=== PATIENT | female | born 1980 | race Caucasian/White ===

== ENCOUNTER → 2016-07-02 | Outpatient (CLI) | payer OTHER ==
[~2016-07-02] MED LIST: ABL10 PO; CIPR-255 PO; GDN40 PO; HYDR-5688 PO; JNL12021 PO; PANT40TA PO; RBX750 PO; TOPI100T20 PO
[2016-07-02 17:50] LABS: HEMATOCRIT 39.7 % (37-47); MEAN CELL VOLUME 89.4 fL (80-100); MEAN CORPUSCULAR HEMOGLOBIN 30.6 pg (25-34); MEAN CORPUSCULAR HGB CONC 34.3 g/dl (32-36); MEAN PLATELET VOLUME 9.7 fL (7.4-10.4); PLATELET COUNT 293 K/uL (130-400); RED BLOOD COUNT 4.44 M/uL (4.2-5.4); WHITE BLOOD COUNT 7.79 K/uL (4.8-10.8)
[2016-07-02 18:16] LABS: BASO % 0.3 %; BASO ABS # 0.02 K/uL (0-0.2); COMPLETE YES; EOS % 2.4 %; IG% 0.4 %; LYMPH % 34.3 %; LYMPH ABS # 2.67 K/uL (1.2-3.4); MONO % 5.9 %; NEUT % 56.7 %
[2016-07-05 09:09] LABS: CYCLIC CITRULLINATED PEPT IGG <16 UNITS (<20)
== END | disposition home or self-care (01) ==
LOC: C.LABPVFM 11:15
PROVIDERS: ATTEND Family Medicine
DX: M19.90 Unspecified osteoarthritis, unspecified site (principal); G56.00 Carpal tunnel syndrome, unspecified upper limb

== ENCOUNTER 2016-07-03 02:52 | Emergency (ER) | payer OTHER ==
[~2016-07-03] VITALS: Ht 172.7 cm; Wt 94.5 kg
[~2016-07-03 02:52] MED LIST changes: -ABL10 PO; -CIPR-255 PO; -HYDR-5688 PO; -PANT40TA PO; -TOPI100T20 PO
[2016-07-03 02:58] VITALS: TEMP 36.7; Ht 172.7 cm; Wt 94.5 kg
[2016-07-03] MEDS ORDERED: ONDANSETRON INJ 2 MG/ML 2 ML VIAL IV STA (03:10)
[2016-07-03] MEDS ORDERED: SODIUM CHLORIDE 0.9% 1000ML 1,000 ML IV ONE (03:15)
[2016-07-03] MEDS ORDERED: GI COCKTAIL PO ONE (03:15)
[2016-07-03] MEDS ORDERED: PANTOprazole INJ 40 MG in SYRINGE 0 ML IV ONE (03:15)
[2016-07-03 03:25] LABS: HEMATOCRIT 40.2 % (37-47); MEAN CELL VOLUME 90.7 fL (80-100); MEAN CORPUSCULAR HEMOGLOBIN 31.4 pg (25-34); MEAN CORPUSCULAR HGB CONC 34.6 g/dl (32-36); MEAN PLATELET VOLUME 9.6 fL (7.4-10.4); PLATELET COUNT 295 K/uL (130-400); RED BLOOD COUNT 4.43 M/uL (4.2-5.4); WHITE BLOOD COUNT 10.71 K/uL (4.8-10.8)
[2016-07-03] MEDS ORDERED: ALUMINUM/MAGNESIUM SUSP 30 ML UDC ONE (03:35)
[2016-07-03] MEDS ORDERED: LIDOCAINE HCL 2% VISC SOLN 20 ML UDC ONE (03:36)
[2016-07-03 03:42] LABS: BUN/CREATININE RATIO 11.2 (10-20); CALCIUM 8.8 mg/dl (8.5-10.1); CREATININE 0.99 mg/dl (0.60-1.20); POTASSIUM 3.6 mmol/L (3.5-5.1)
[2016-07-03 03:45] LABS: ALB/GLOB RATIO 0.9 (0.9-2)
[2016-07-03] MEDS ORDERED: OPTIRAY 320 IV PRN (03:45)
[2016-07-03] MEDS ORDERED: TOPI100T20 PO (03:46)
[2016-07-03] MEDS ORDERED: ABL10 PO (03:46)
[2016-07-03 03:49] LABS: BASO % 0.2 %; BASO ABS # 0.02 K/uL (0-0.2); COMPLETE YES; EOS % 2.3 %; IG% 0.3 %; LYMPH % 48.6 %; MONO % 6.3 %; NEUT % 42.3 %
[2016-07-03] MEDS ORDERED: MoRPHine SULFATE 10 MG/ML CARP/VIAL IV STA (04:12)
[2016-07-03] MEDS ORDERED: MoRPHine SULFATE 2 MG/ML CARP ONE (04:21)
[2016-07-03] MEDS ORDERED: MoRPHine SULFATE 4 MG/ML 1 ML CARP\\VIAL ONE (04:21)
[2016-07-03] MEDS ORDERED: MoRPHine SULFATE 4 MG/ML 1 ML CARP\\VIAL IV ONE (05:00)
--- NOTE | 2016-07-03 06:53 | DIAGNOSTIC IMAGING REPORT ---
ABDOMEN 2VIEW W/PA CHEST RTN CLINICAL HISTORY: Epigastric and substernal chest pain COMPARISON STUDY: 01/01/2016 FINDINGS: The erect chest reveals no evidence of free air. There is no evidence of focal pulmonary consolidation.] Erect and supine views of the abdomen reveal no abnormally dilated loops of large or small bowel. There are no transition zone to indicate bowel obstruction. There are multiple pelvic basin calcifications. In the absence of renal colic these likely represent phleboliths IMPRESSION: No evidence of bowel obstruction. No evidence of free air. Electronically signed by: Claudio Talbot M.D. 07/03/2016 6:51 AM Dictated Date/Time: 07/03/2016 6:50 AM
--- NOTE | 2016-07-03 07:15 | DIAGNOSTIC IMAGING REPORT ---
BILIARY ULTRASOUND CLINICAL HISTORY: Epigastric abdominal pain. Abnormal CT scan. COMPARISON STUDY: 01/01/2016, CT scan dated 07/03/2016 FINDINGS: The pancreas appears normal as visualized. No focal hepatic masses are visualized. There is no ductal dilatation. The common bile duct measures 4 mm. There is no right-sided hydronephrosis. There is cholelithiasis. The gallbladder wall measures 3.6 mm. There is no pericholecystic fluid. There is a ringdown artifact within the gallbladder consistent with adenomyomatosis. The gallbladder wall previously measured 4 mm in December 2015. IMPRESSION: 1. Cholelithiasis. The gallbladder wall is the upper limits of normal in thickness. There is no ductal dilatation. Electronically signed by: Claudio Talbot M.D. 07/03/2016 7:14 AM Dictated Date/Time: 07/03/2016 7:11 AM
--- NOTE | 2016-07-03 07:19 | DIAGNOSTIC IMAGING REPORT ---
CT ANGIOGRAM OF THE CHEST CLINICAL HISTORY: Central chest pain with elevated d-dimer COMPARISON STUDY: 01/01/2016 TECHNIQUE: Following the IV administration of 92 mL of Optiray-320, CT angiogram of the thorax was performed from the thoracic inlet to the lung bases utilizing the pulmonary embolus protocol. Images are reviewed in the axial, sagittal, and coronal planes. IV contrast was administered without complication. MIP imaging was performed. CT DOSE: 577.01 mGy.cm FINDINGS: No pathologically enlarged axillary mediastinal or hilar lymph nodes were visualized. Prominent anterior mediastinal soft tissue, likely represents prominent thymus. This remains unchanged from the prior study. There was no evidence of thoracic aortic dilatation. There were no pulmonary artery filling defects to indicate acute pulmonary embolism. No pleural effusions are visualized. There was no evidence of focal pulmonary consolidation. IMPRESSION: 1. No CT evidence of acute pulmonary embolism 2. No evidence of focal pulmonary consolidation 3. Stable prominent anterior mediastinal soft tissue, likely representing prominent thymus Electronically signed by: Claudio Talbot M.D. 07/03/2016 7:18 AM Dictated Date/Time: 07/03/2016 7:14 AM
[2016-07-03] MEDS ORDERED: PANT40TA PO (07:24)
[2016-07-03] MEDS ORDERED: HYDR-5688 PO (07:24)
--- NOTE | 2016-07-03 07:27 | EMERGENCY ROOM VISIT NOTE ---
History First contact with patient: 03:02 Chief Complaint: CHEST PAIN Stated Complaint: STERNUM PAIN,NAUSEA Nursing Triage Summary: pt co chest/epigastric pain that began 45minutes ago. reports mid back pain woke her from sleep and advanced to chest pain with associated nausea. pt denies sob at this time. denies pmh. states she has had problems like this in the past " they said it was a blood clot or gall stones." pt alert and oriented x4. breathing regularly and independently. History of Present Illness The patient is a 36 year old female who presents to the Emergency Room with complaints of epigastric and substernal chest pain that began about 45 minutes prior to arrival. The patient states that her pain woke her up from sleep and does not radiate. She is nauseated. The patient has not vomited, but does report a history of gallstones. She has had similar symptoms like this previously without known diagnosis. The patient rates the pain an 8/10. She has not had fever or chills. She felt well yesterday and does not recall trying different food or having known exposure to disease. She does not have lower abdominal pain. No recent travel history. Review of Systems More than 10 systems were reviewed and otherwise negative with the exception of history of present illness. Past Medical/Surgical History Medical Problems: (1) Anxiety State Nos (2) Back pain (3) Back pain (4) Borderline Personality Disorder (5) Depressive Disorder Nec (6) Headache (7) Kidney stones (8) Posttraumatic Stress Disorder (9) Suicidal ideation (10) Urinary tract infection (11) UTI (urinary tract infection) Surgical Problems: (1) History of tubal ligation Family History Hypertension Kidney stones Social History Smoking Status: Never Smoker Alcohol Use: none Drug Use: none Marital Status: in relationship Housing Status: lives with family Occupation Status: employed Current/Historical Medications Scheduled Aripiprazole (Abilify), 10 MG PO DAILY Ethinyl Estradiol/Norethindr (June04/19), 1 TAB PO DAILY Topiramate (Topamax), 100 MG PO HS Scheduled PRN Methocarbamol (Methocarbamol), 375-750 MG PO Q8 PRN for Headache Allergies Coded Allergies: Latex (Verified Allergy, Intermediate, SWELLING WITH INTERNAL EXAMS AND CONDOMS, 07/03/16) Physical Exam Vital Signs Date Time Temp Pulse Resp B/P Pulse Ox O2 Delivery O2 Flow Rate FiO2 4/5/17 05:07 83 17 134/85 94 Room Air 07/03/16 04:12 92 16 149/95 100 Room Air 07/03/16 03:07 86 07/03/16 02:58 36.7 84 20 128/90 98 Room Air Pain Rating (0-10): 6.0 Physical Exam VITALS: Vitals are noted on the nurse's note and reviewed by myself. Vital signs stable. GENERAL: Well-developed, well-nourished, white female, who is in no acute distress and resting comfortably. Patient is cooperative with the examination. HEAD: Normocephalic atraumatic. HEART: Regular rate and rhythm without murmurs gallops or rubs. LUNGS: Clear to auscultation bilaterally without wheezes, rales or rhonchi. No retractions or accessory muscle use. ABDOMEN: Positive normal bowel sounds x 4. Soft with epigastric tenderness on palpation. No rebound or guarding. MUSCULOSKELETAL: No muscle atrophy, erythema, or edema noted. Full range of motion without joint tenderness in all extremities. Medical Decision & Procedures ER Provider Diagnostic Interpretation: Preliminary Findings Only See Final Report For Complete Findings CTA CHEST: Comparison 01/01/16 No evidence for PE or aortic dissection. Suspected hypoventilatory changes. No consolidation. No effusions. No aortic dissection or other acute intrathoracic finding. Similar-appearing soft tissues density in mediastinum. May represents small nodes and/or thymus, as discussed on prior. Equivocal mural thickening of the partially imaged gallbladder. Correlate for any right upper quadrant symptoms. BILIARY ULTRASOUND CLINICAL HISTORY: Epigastric abdominal pain. Abnormal CT scan. COMPARISON STUDY: 01/01/2016, CT scan dated 07/03/2016 FINDINGS: The pancreas appears normal as visualized. No focal hepatic masses are visualized. There is no ductal dilatation. The common bile duct measures 4 mm. There is no right-sided hydronephrosis. There is cholelithiasis. The gallbladder wall measures 3.6 mm. There is no pericholecystic fluid. There is a ringdown artifact within the gallbladder consistent with adenomyomatosis. The gallbladder wall previously measured 4 mm in December 2015. IMPRESSION: 1. Cholelithiasis. The gallbladder wall is the upper limits of normal in thickness. There is no ductal dilatation. Laboratory Results 07/03/16 03:11 Red Blood Count 4.43, Mean Corpuscular Volume 90.7, Mean Corpuscular Hemoglobin 31.4, Mean Corpuscular Hemoglobin Concent 34.6, Mean Platelet Volume 9.6, Neutrophils (%) (Auto) 42.3, Lymphocytes (%) (Auto) 48.6, Monocytes (%) (Auto) 6.3, Eosinophils (%) (Auto) 2.3, Basophils (%) (Auto) 0.2, Neutrophils # (Auto) 4.53, Lymphocytes # (Auto) 5.20, Monocytes # (Auto) 0.68, Eosinophils # (Auto) 0.25, Basophils # (Auto) 0.02 07/03/16 03:11 Test 07/03/16 03:11 07/03/16 03:15 White Blood Count 10.71 K/uL (4.8-10.8) Red Blood Count 4.43 M/uL (4.2-5.4) Hemoglobin 13.9 g/dL (12.0-16.0) Hematocrit 40.2 % (37-47) Mean Corpuscular Volume 90.7 fL (80-100) Mean Corpuscular Hemoglobin 31.4 pg (25-34) Mean Corpuscular Hemoglobin Concent 34.6 g/dl (32-36) Platelet Count 295 K/uL (130-400) Mean Platelet Volume 9.6 fL (7.4-10.4) Neutrophils (%) (Auto) 42.3 % Lymphocytes (%) (Auto) 48.6 % Monocytes (%) (Auto) 6.3 % Eosinophils (%) (Auto) 2.3 % Basophils (%) (Auto) 0.2 % Neutrophils # (Auto) 4.53 K/uL (1.4-6.5) Lymphocytes # (Auto) 5.20 K/uL (1.2-3.4) Monocytes # (Auto) 0.68 K/uL (0.11-0.59) Eosinophils # (Auto) 0.25 K/uL (0-0.5) Basophils # (Auto) 0.02 K/uL (0-0.2) RDW Standard Deviation 45.9 fL (36.4-46.3) RDW Coefficient of Variation 13.8 % (11.5-14.5) Immature Granulocyte % (Auto) 0.3 % Immature Granulocyte # (Auto) 0.03 K/uL (0.00-0.02) Red Blood Cell Morphology Unremarkable Anion Gap 7.0 mmol/L (3-11) Est Creatinine Clear Calc Drug Dose 95.3 ml/min Estimated GFR () 85.6 Estimated GFR (Non- 73.8 BUN/Creatinine Ratio 11.2 (10-20) Calcium Level 8.8 mg/dl (8.5-10.1) Total Bilirubin 0.2 mg/dl (0.2-1) Aspartate Amino Transf (AST/SGOT) 8 U/L (15-37) Alanine Aminotransferase (ALT/SGPT) 22 U/L (12-78) Alkaline Phosphatase 65 U/L (45-117) Total Protein 7.4 gm/dl (6.4-8.2) Albumin 3.5 gm/dl (3.4-5.0) Globulin 3.9 gm/dl (2.5-4.0) Albumin/Globulin Ratio 0.9 (0.9-2) Lipase 164 U/L (73-393) Bedside D-Dimer > 450 ng/mlFEU (0-450) Bedside Troponin I 0.000 ng/ml (0-0.045) Medications Administered Medications (Trade) Dose Ordered Sig/Dg Route Start Time Stop Time Status Last Admin Dose Admin Sodium Chloride (Nss 1000ml) 1,000 ml @ 999 mls/hr Q1H1M ONCE IV 07/03/16 03:15 07/03/16 04:15 DC 07/03/16 03:39 999 MLS/HR Ondansetron HCl 4 mg 4 mg NOW STAT IV 07/03/16 03:10 07/03/16 03:13 DC 07/03/16 03:35 4 MG Pantoprazole Sodium/Syringe (Protonix Inj/ Syringe) 10 ml @ 5 mls/min NOW ONCE IV 07/03/16 03:15 07/03/16 03:16 DC 07/03/16 05:10 5 MLS/MIN Al Hydroxide/Mg Hydroxide (Maalox Susp) 30 ml STK-MED ONCE .ROUTE 07/03/16 03:35 07/03/16 03:36 DC 07/03/16 03:35 30 ML Lidocaine HCl (Viscous Lidocaine 2% Soln) 20 ml STK-MED ONCE .ROUTE 07/03/16 03:36 07/03/16 03:37 DC 07/03/16 03:35 20 ML Morphine Sulfate (MoRPHine SULFATE INJ) 4 mg STK-MED ONCE .ROUTE 07/03/16 04:21 07/03/16 04:22 DC 07/03/16 04:18 4 MG Morphine Sulfate (MoRPHine SULFATE INJ) 2 mg STK-MED ONCE .ROUTE 07/03/16 04:21 07/03/16 04:22 DC 07/03/16 04:18 2 MG Morphine Sulfate (MoRPHine SULFATE INJ) 4 mg NOW ONCE IV 07/03/16 05:00 07/03/16 05:01 DC 07/03/16 05:08 4 MG ED Course Physical exam and history were performed. Nursing notes and EMR were reviewed. Patient appears to have epigastric and substernal chest pain for the past 45 minutes. The patient does not appear toxic on examination. IV access was established and labs were obtained. EKG was normal sinus rhythm without ST elevation. The patient was hydrated and medicated as above. The patient blood work is as above and was reviewed. She does not have a significantly elevated white blood cell count or gross anemia, bandemia, or significant electrolyte imbalance. Lipase and transaminases are nondiagnostic. Troponin 1 is negative, however her d-dimer is positive. Because of the CT scan was performed. CT scan does not show evidence of acute pulmonary embolism or other intrathoracic processes. There is some concern for gallbladder thickening on CT scan of the chest, however the gallbladder was not completely visualized. Because of this I did elect to perform an ultrasound of the right upper quadrant which does show some biliary disease but no acute cholecystitis. Overall the patient appears stable for discharge home. I suspect that her symptoms may be related to GERD or possibly biliary colic. She will be given a short course of Vicodin and Protonix for her symptoms. I will give her the information to follow with a general surgeon for further evaluation of her gallbladder. The patient is otherwise to follow with PCP this week for further management. She is invited back to the ER with any new, worsening, or concerning symptoms. The chart was completed utilizing [employer] Voice Recognition Software. Grammatical errors, random word insertions, pronoun errors, and incomplete sentences are an occasional consequence of this system due to software limitations, ambient noise, and hardware issues. Any formal questions or concerns about the content, text, or information contained within the body of this dictation should be directly addressed to the provider for clarification. . Medical Decision Differential diagnosis: Etiologies such as appendicitis, diverticulitis, PUD, biliary pathology, UTI, pancreatitis, obstruction, mesenteric ischemia, aortic pathology, infections, inflammatory bowel disease, renal colic, as well as others were entertained. Impression Primary Impression: Substernal precordial chest pain Departure Information Referrals Aurea Gonzalez M.D. (PCP) Patient Instructions My [facility]
[2016-07-03 08:00] VITALS: BP 127/88; PULSE 87; O2SAT 96
[2016-07-14] MEDS ORDERED: CIPR-255 PO (05:31)
[2016-07-14] MEDS ORDERED: HYDR-5688 PO (05:31)
== END 2016-07-03 08:02 | disposition home or self-care (01) ==
LOC: C.EDB 02:54
DX: R07.2 Precordial pain (principal); R11.0 Nausea; R10.13 Epigastric pain

== ENCOUNTER 2016-07-12 15:24 | Inpatient (IN) | payer OTHER ==
[~2016-07-12] VITALS: Ht 172.7 cm; Wt 97.1 kg
[~2016-07-12 15:24] MED LIST changes: +ABL10 PO; -GDN40 PO; +HYDR-5688 PO; +PANT40TA PO; +TOPI100T20 PO
[2016-07-12] MEDS ORDERED: ONDANSETRON INJ 2 MG/ML 2 ML VIAL IV STA (17:23)
[2016-07-12] MEDS ORDERED: MoRPHine SULFATE 4 MG/ML 1 ML CARP\\VIAL IV STA (17:28)
--- NOTE | 2016-07-12 17:31 | EMERGENCY ROOM VISIT NOTE ---
History First contact with patient: 17:03 Chief Complaint: ABDOMINAL PAIN Stated Complaint: GALLSTONES Nursing Triage Summary: Patient states he was here with gal stones last week and today pain increased with n/v. History of Present Illness The patient is a 36 year old female who presents to the Emergency Room with complaints of 3 hr hx of progressive epigastric pain. Pain is constant, 8/10 intensity , radiating to back, Rt flank. Patient also reports subjective fever , 1 episode vomiting. She has taken no medication. denies constipation, hematochezia, melena, diarrhea, cp, sob, Patient was previously in ED for Chest pain on 07/03. She had a negative cardiac workup for ACS, negative PE workup with CT . CT showed Gall bladder thickness. RUQ U/S showed cholelithiasis without acute cholecystis Past Medical/Surgical History Medical Problems: (1) Anxiety State Nos (2) Back pain (3) Back pain (4) Borderline Personality Disorder (5) Depressive Disorder Nec (6) Headache (7) Kidney stones (8) Posttraumatic Stress Disorder (9) Suicidal ideation (10) Urinary tract infection (11) UTI (urinary tract infection) Surgical Problems: (1) History of tubal ligation Family History Hypertension Kidney stones Social History Smoking Status: Current Every Day Smoker Alcohol Use: none Drug Use: none Marital Status: in relationship Housing Status: lives with family Occupation Status: employed Current/Historical Medications Scheduled Aripiprazole (Abilify), 10 MG PO DAILY Ciprofloxacin Hcl (Cipro), 1 TAB PO BID Ethinyl Estradiol/Norethindr (Junel 04/19), 1 TAB PO DAILY Pantoprazole (Protonix), 40 MG PO DAILY Topiramate (Topamax), 100 MG PO HS Scheduled PRN Hydrocodone/Acetaminophen 5MG/325MG ([place] 5MG/325MG), 1-2 TABLET PO q 6 hrs PRN for Pain Methocarbamol (Methocarbamol), 375-750 MG PO Q8 PRN for Headache Allergies Coded Allergies: Latex (Verified Allergy, Intermediate, SWELLING WITH INTERNAL EXAMS AND CONDOMS, 07/12/16) Physical Exam Vital Signs Date Time Temp Pulse Resp B/P Pulse Ox O2 Delivery O2 Flow Rate FiO2 07/12/16 18:03 86 18 138/79 97 Room Air 07/12/16 15:37 36.7 96 20 133/84 98 Room Air Physical Exam GENERAL: alert, anxious appearing, no distress, non-toxic EYE EXAM: normal conjunctiva, PERRL and EOM's grossly intact OROPHARYNX: no exudate, no erythema, lips, buccal mucosa, and tongue normal and mucous membranes are moist NECK: supple, no nuchal rigidity, no adenopathy, non-tender LUNGS: Clear to auscultation. Normal chest wall mechanics HEART: no murmurs, S1 normal and S2 normal ABDOMEN: Epigastric, RUQ tenderness, Aguilera sx negative, normo-active bowel sounds, no masses, no rebound or guarding. SKIN: no rashes and no bruising UPPER EXTREMITIES: upper extremities are grossly normal. LOWER EXTREMITIES: No pitting edema. NEURO EXAM: Normal sensorium, cranial nerves II-XII grossly intact, normal speech, no gross weakness of arms, no gross weakness of legs. Medical Decision & Procedures Laboratory Results 07/12/16 17:48 Red Blood Count 4.50, Mean Corpuscular Volume 90.2, Mean Corpuscular Hemoglobin 31.3, Mean Corpuscular Hemoglobin Concent 34.7, Mean Platelet Volume 9.7, Neutrophils (%) (Auto) 83.5, Lymphocytes (%) (Auto) 11.8, Monocytes (%) (Auto) 4.2, Eosinophils (%) (Auto) 0.1, Basophils (%) (Auto) 0.2, Neutrophils # (Auto) 10.89, Lymphocytes # (Auto) 1.54, Monocytes # (Auto) 0.55, Eosinophils # (Auto) 0.01, Basophils # (Auto) 0.02 07/12/16 17:48 Test 07/12/16 17:25 07/12/16 17:48 Urine Color DK YELLOW Urine Appearance CLEAR (CLEAR) Urine pH 6.5 (4.5-7.5) Urine Specific [place] 1.024 (1.000-1.030) Urine Protein NEG (NEG) Urine Glucose (UA) NEG (NEG) Urine Ketones NEG (NEG) Urine Occult Blood NEG (NEG) Urine Nitrite NEG (NEG) Urine Bilirubin NEG (NEG) Urine Urobilinogen NEG (NEG) Urine Leukocyte Esterase NEG (NEG) Urine Test NEG (NEG) White Blood Count 13.04 K/uL (4.8-10.8) Red Blood Count 4.50 M/uL (4.2-5.4) Hemoglobin 14.1 g/dL (12.0-16.0) Hematocrit 40.6 % (37-47) Mean Corpuscular Volume 90.2 fL (80-100) Mean Corpuscular Hemoglobin 31.3 pg (25-34) Mean Corpuscular Hemoglobin Concent 34.7 g/dl (32-36) Platelet Count 277 K/uL (130-400) Mean Platelet Volume 9.7 fL (7.4-10.4) Neutrophils (%) (Auto) 83.5 % Lymphocytes (%) (Auto) 11.8 % Monocytes (%) (Auto) 4.2 % Eosinophils (%) (Auto) 0.1 % Basophils (%) (Auto) 0.2 % Neutrophils # (Auto) 10.89 K/uL (1.4-6.5) Lymphocytes # (Auto) 1.54 K/uL (1.2-3.4) Monocytes # (Auto) 0.55 K/uL (0.11-0.59) Eosinophils # (Auto) 0.01 K/uL (0-0.5) Basophils # (Auto) 0.02 K/uL (0-0.2) RDW Standard Deviation 44.0 fL (36.4-46.3) RDW Coefficient of Variation 13.3 % (11.5-14.5) Immature Granulocyte % (Auto) 0.2 % Immature Granulocyte # (Auto) 0.03 K/uL (0.00-0.02) Anion Gap 7.0 mmol/L (3-11) Est Creatinine Clear Calc Drug Dose 110.0 ml/min Estimated GFR () 100.0 Estimated GFR (Non- 86.3 BUN/Creatinine Ratio 12.8 (10-20) Calcium Level 9.0 mg/dl (8.5-10.1) Total Bilirubin 0.7 mg/dl (0.2-1) Direct Bilirubin 0.4 mg/dl (0-0.2) Aspartate Amino Transf (AST/SGOT) 137 U/L (15-37) Alanine Aminotransferase (ALT/SGPT) 116 U/L (12-78) Alkaline Phosphatase 119 U/L (45-117) Total Protein 7.9 gm/dl (6.4-8.2) Albumin 3.7 gm/dl (3.4-5.0) Lipase 230 U/L (73-393) Medications Administered Medications (Trade) Dose Ordered Sig/Dg Route Start Time Stop Time Status Last Admin Dose Admin Ondansetron HCl (Zofran Inj) 4 mg NOW STAT IV 07/12/16 17:23 07/12/16 17:26 DC 07/12/16 17:55 4 MG Morphine Sulfate (MoRPHine SULFATE INJ) 4 mg NOW STAT IV 07/12/16 17:28 07/12/16 17:29 DC 07/12/16 17:55 4 MG Medical Decision 36 yo F previously diagnosed with cholelithiasis without acute cholecystitis in ED on 07/03 p/w acute epigastric pain,tenderness, RUQ tenderness, afebrile, VSS Differential diagnoses includes but is not limited to gastritis, peptic ulcer disease, GERD, gallbladder disease, pancreatitis, small bowel obstruction, acute coronary syndrome, pericarditis, ischemic bowel, irritable bowel disease, irritable bowel syndrome, appendicitis, diverticulitis, malignancy, hernia, urinary tract infection, torsion, /ectopic , perforation, trauma, infectious. CBC White ct: 13.04 otherwise unremarkable BMP unremarkable LFT -AST: 137 ( previously 8 on 07/03) -ALT: 116 (previously 22 on 07/03) -Alk Phos: 119 (previously 65 on 07/03) UA negative Lipase negative UPT negative RUQ u/s: Cholelithiasis with a mildly distended and thick-walled gallbladder.A sonographic Aguilera's sign is reportedly absent and findings are equivocal for acute cholecystitis which is not excluded. -Given Morphine 4 mg -Given Zofran IV 4 mg Patient's hx of cholelithiasis, RUQ tenderness,, leukocytosis , elevated LFT's and evidence on U/S are consistent with Acute Cholecystitis. Discussed case with [facility] Surgeon, Dr. Chow who agreed to evaluate her. Per Dr. Chow, patient will be scheduled for Cholecystectomy on the morning of 07/13/2016 Impression Primary Impression: Acute cholecystitis due to biliary calculus Departure Information Dispostion Admitted as an inpatient Condition GOOD Prescriptions Ciprofloxacin Hcl (CIPRO) 500 Mg Tab 1 TAB PO BID for 5 Days, #10 TAB Prov: Arash Chow M.D. 07/14/16 Hydrocodone/Acetaminophen 5MG/325MG ([place] 5MG/325MG) Tab 1-2 TABLET PO q 6 hrs Y for Pain, #40 TAB PRN PAIN Prov: Arash Chow M.D. 07/14/16 Referrals Aurea Gonzalez M.D. (PCP) Patient Instructions My [facility] Resident Tracking Resident Involvement: Resident Care Provided Care Provided: Adult ED
[2016-07-12 17:40] LABS: URINE APPEARANCE CLEAR (CLEAR); URINE BILIRUBIN NEG (NEG); URINE COLOR DK YELLOW; URINE NITRITE NEG (NEG); URINE PH 6.5 (4.5-7.5); URINE SPECIFIC GRAVITY 1.024 (1.000-1.030); UROBILINOGEN NEG (NEG)
[2016-07-12 17:49] LABS: MANUAL MICROSCOPIC REQUIRED? NO; REVIEW REQ? NO
[2016-07-12 18:00] LABS: BASO % 0.2 %; BASO ABS # 0.02 K/uL (0-0.2); COMPLETE YES; EOS % 0.1 %; HEMATOCRIT 40.6 % (37-47); IG% 0.2 %; LYMPH % 11.8 %; LYMPH ABS # 1.54 K/uL (1.2-3.4); MEAN CELL VOLUME 90.2 fL (80-100); MEAN CORPUSCULAR HEMOGLOBIN 31.3 pg (25-34); MEAN CORPUSCULAR HGB CONC 34.7 g/dl (32-36); MEAN PLATELET VOLUME 9.7 fL (7.4-10.4); MONO % 4.2 %; NEUT % 83.5 %; PLATELET COUNT 277 K/uL (130-400); WHITE BLOOD COUNT 13.04 K/uL (4.8-10.8)
[2016-07-12 18:15] LABS: BUN/CREATININE RATIO 12.8 (10-20); CREATININE 0.87 mg/dl (0.60-1.20); POTASSIUM 3.7 mmol/L (3.5-5.1)
--- NOTE | 2016-07-12 19:00 | DIAGNOSTIC IMAGING REPORT ---
ULTRASOUND RIGHT UPPER QUADRANT ABDOMEN CLINICAL HISTORY: Right upper quadrant abdominal pain. COMPARISON STUDY: Ultrasound of the abdomen dated 07/03/2016. TECHNIQUE: Real-time, grayscale, and color flow sonography of the right upper quadrant of the abdomen was performed. Images are reviewed in the transverse and longitudinal planes. FINDINGS: Liver: The liver is normal in size and echotexture. There is no intrahepatic biliary ductal dilatation. The main portal vein is patent. Gallbladder: Calcified gallstones are again noted. The gallbladder is mildly distended. The gallbladder wall is mildly thickened measuring up to 4 mm. No pericholecystic fluid is identified. A sonographic Aguilera's sign is reportedly absent. The common bile duct measures up to 0.5 cm in diameter. Pancreas: Visualized portions of the pancreatic head and body are normal in appearance. Right kidney: Survey images of the right kidney demonstrate normal size and echotexture. There is no hydronephrosis. Ascites: None. IMPRESSION: Cholelithiasis with a mildly distended and thick-walled gallbladder. A sonographic Aguilera's sign is reportedly absent and findings are equivocal for acute cholecystitis which is not excluded. The appearance has not significantly changed from study performed 9 days previously. If there is strong clinical concern for acute cholecystitis then a nuclear hepatobiliary scan should be considered. Electronically signed by: Roberto Roca M.D. 07/12/2016 6:57 PM Dictated Date/Time: 07/12/2016 6:54 PM
[2016-07-12] MEDS ORDERED: ONDANSETRON INJ 2 MG/ML 2 ML VIAL IV PRN (19:45)
[2016-07-12] MEDS ORDERED: HYDROCODONE/ACETAMOPHEN 5/325MG TAB PO PRN (19:45)
[2016-07-12] MEDS ORDERED: LORAZEPAM INJ 0.5 MG in SYRINGE 0.25 ML IV PRN (19:45)
[2016-07-12] MEDS ORDERED: PROMETHAZINE HCL INJ 25 MG in SODIUM CHLORIDE 0.9% 50ML 50 ML IV PRN (19:45)
--- NOTE | 2016-07-12 19:54 | History and Physical ---
History & Physical Date & Time of Service: Jul 12, 2016 at 19:48 Chief Complaint: Gallstones Primary Care Physician: Aurea Gonzalez M.D. History of Present Illness pt with epigastric and RUQ pain- u/s shows thickened gb- Lg stones- worse than when in ER 4/5.- Recently in my office- wanted to delay surgery. Past Medical/Surgical History Medical Problems: (1) Anxiety State Nos Status: Chronic (2) Back pain Status: Resolved (3) Back pain Status: Resolved (4) Borderline Personality Disorder Status: Chronic (5) Depressive Disorder Nec Status: Chronic (6) Headache Status: Resolved (7) Kidney stones Status: Chronic (8) Posttraumatic Stress Disorder Status: Chronic (9) Suicidal ideation Status: Resolved (10) Urinary tract infection Status: Resolved (11) UTI (urinary tract infection) Status: Resolved Surgical Problems: (1) History of tubal ligation Status: Resolved Family History Hypertension Kidney stones Social History Smoking Status: Current Every Day Smoker Drug Use: none Marital Status: in relationship Housing status: lives with family Occupational Status: employed Immunizations History of Influenza Vaccine: No History of Tetanus Vaccine?: Yes Tetanus Immunization Date: Mar 08, 2009 History of Pneumococcal: No History of Hepatitis B Vaccine: Yes Hepatitis Immunization Date: Mar 08, 2000 Multi-Drug Resistant Organisms History of MDRO: No Allergies Coded Allergies: Latex (Verified Allergy, Intermediate, SWELLING WITH INTERNAL EXAMS AND CONDOMS, 07/12/16) Home Medications Scheduled Aripiprazole (Abilify), 10 MG PO DAILY Ethinyl Estradiol/Norethindr (June04/19), 1 TAB PO DAILY Pantoprazole (Protonix), 40 MG PO DAILY Topiramate (Topamax), 100 MG PO HS Scheduled PRN Methocarbamol (Methocarbamol), 375-750 MG PO Q8 PRN for Headache Review of Systems Constitutional: No chills, No fever Eyes: No eye pain Respiratory: No cough, No shortness of breath, No sputum Cardiovascular: No chest pain Abdomen: + nausea, + pain, No vomiting Musculoskeletal: No joint pain Genitourinary - Female: No dysuria Neurologic: No weakness Psychiatric: + depression symptoms Endocrine: No fatigue Integumentary: No rash Physical Exam Vital Signs Date Time Temp Pulse Resp B/P Pulse Ox O2 Delivery O2 Flow Rate FiO2 07/12/16 18:03 86 18 138/79 97 Room Air 07/12/16 15:37 36.7 96 20 133/84 98 Room Air General Appearance: WD/WN, no apparent distress Eyes: sclerae normal Neck: supple Respiratory/Chest: normal breath sounds, no respiratory distress Cardiovascular: regular rate, rhythm Abdomen/GI: soft, + tenderness (mild RUQ tenderness) Extremities/Musculoskelatal: no pedal edema Neurologic/Psych: alert, normal mood/affect, oriented x 3 Skin: no rash Diagnostics Laboratory Results Results Past 24 Hours Test 07/12/16 17:25 07/12/16 17:48 Range/Units Urine Color DK YELLOW Urine Appearance CLEAR CLEAR Urine pH 6.5 4.5-7.5 Urine Specific [place] 1.024 1.000-1.030 Urine Protein NEG NEG Urine Glucose (UA) NEG NEG Urine Ketones NEG NEG Urine Occult Blood NEG NEG Urine Nitrite NEG NEG Urine Bilirubin NEG NEG Urine Urobilinogen NEG NEG Urine Leukocyte Esterase NEG NEG Urine Test NEG NEG White Blood Count 13.04 4.8-10.8 K/uL Red Blood Count 4.50 4.2-5.4 M/uL Hemoglobin 14.1 12.0-16.0 g/dL Hematocrit 40.6 37-47 % Mean Corpuscular Volume 90.2 80-100 fL Mean Corpuscular Hemoglobin 31.3 25-34 pg Mean Corpuscular Hemoglobin Concent 34.7 32-36 g/dl Platelet Count 277 130-400 K/uL Mean Platelet Volume 9.7 7.4-10.4 fL Neutrophils (%) (Auto) 83.5 % Lymphocytes (%) (Auto) 11.8 % Monocytes (%) (Auto) 4.2 % Eosinophils (%) (Auto) 0.1 % Basophils (%) (Auto) 0.2 % Neutrophils # (Auto) 10.89 1.4-6.5 K/uL Lymphocytes # (Auto) 1.54 1.2-3.4 K/uL Monocytes # (Auto) 0.55 0.11-0.59 K/uL Eosinophils # (Auto) 0.01 0-0.5 K/uL Basophils # (Auto) 0.02 0-0.2 K/uL RDW Standard Deviation 44.0 36.4-46.3 fL RDW Coefficient of Variation 13.3 11.5-14.5 % Immature Granulocyte % (Auto) 0.2 % Immature Granulocyte # (Auto) 0.03 0.00-0.02 K/uL Sodium Level 145 136-145 mmol/L Potassium Level 3.7 3.5-5.1 mmol/L Chloride Level 113 98-107 mmol/L Carbon Dioxide Level 25 21-32 mmol/L Anion Gap 7.0 3-11 mmol/L Blood Urea Nitrogen 11 7-18 mg/dl Creatinine 0.87 0.60-1.20 mg/dl Est Creatinine Clear Calc Drug Dose 110.0 ml/min Estimated GFR () 100.0 Estimated GFR (Non- 86.3 BUN/Creatinine Ratio 12.8 10-20 Random Glucose 124 70-99 mg/dl Calcium Level 9.0 8.5-10.1 mg/dl Total Bilirubin 0.7 0.2-1 mg/dl Direct Bilirubin 0.4 0-0.2 mg/dl Aspartate Amino Transf (AST/SGOT) 137 15-37 U/L Alanine Aminotransferase (ALT/SGPT) 116 12-78 U/L Alkaline Phosphatase 119 45-117 U/L Total Protein 7.9 6.4-8.2 gm/dl Albumin 3.7 3.4-5.0 gm/dl Lipase 230 73-393 U/L Impression Assessment and Plan adm with acute cholecystitis- for OR in am- lap alexi IV fluids, atbx, pain meds, antiemetics. ask med team to follow VTE Prophylaxis VTE Risk Assessment Done? Y/N: Yes Risk Level: Moderate
--- NOTE | 2016-07-12 19:59 | EMERGENCY ROOM VISIT NOTE ---
History Report prepared by Shayy: Duarte Elliott Under the Supervision of: Dr. Krystian Colon M.D. First contact with patient: 17:03 Chief Complaint: ABDOMINAL PAIN Stated Complaint: GALLSTONES Nursing Triage Summary: Patient states he was here with gal stones last week and today pain increased with n/v. History of Present Illness The patient is a 36 year old female who presents to the Emergency Room with complaints of persistent epigastric pain that started 3 hours ago. She describes the pain as stabbing and radiating into her back and right flank. The patient rates the pain as an 8 out of 10 in severity. She had one episode of vomiting with no blood. The patient says that she felt warm and sweaty earlier, but the patient does not currently have a fever here. She has not taken any medications for this current pain. She was here on the 03 of July, and was found to have gallstones and increased gallbladder thickness. The patient says that she did not eat recently, and has not been eating too many fatty foods. She denies any urinary symptoms. Source of History: patient Onset: 3 hours ago Position: abdomen (epigastric) Symptom Intensity: 8 out of 10 in severity Quality: stabbing Timing: other (persistent) Associated Symptoms: + back pain, + vomiting (no blood), No fevers, No urinary symptoms Note: Associated symptom: Pain radiating into right flank. [place] warm and sweaty earlier. Review of Systems See HPI for pertinent positives & negatives. A total of 10 systems reviewed and were otherwise negative. Past Medical & Surgical Medical Problems: (1) Anxiety State Nos (2) Back pain (3) Back pain (4) Borderline Personality Disorder (5) Depressive Disorder Nec (6) Headache (7) Kidney stones (8) Posttraumatic Stress Disorder (9) Suicidal ideation (10) Urinary tract infection (11) UTI (urinary tract infection) Surgical Problems: (1) History of tubal ligation Family History Hypertension Kidney stones Social History Smoking Status: Current Every Day Smoker Alcohol Use: none Drug Use: none Marital Status: in relationship Housing Status: lives with family Occupation Status: employed Current/Historical Medications Scheduled Aripiprazole (Abilify), 10 MG PO DAILY Ethinyl Estradiol/Norethindr (June04/19), 1 TAB PO DAILY Pantoprazole (Protonix), 40 MG PO DAILY Topiramate (Topamax), 100 MG PO HS Scheduled PRN Methocarbamol (Methocarbamol), 375-750 MG PO Q8 PRN for Headache Allergies Coded Allergies: Latex (Verified Allergy, Intermediate, SWELLING WITH INTERNAL EXAMS AND CONDOMS, 07/12/16) Physical Exam Vital Signs Date Time Temp Pulse Resp B/P Pulse Ox O2 Delivery O2 Flow Rate FiO2 07/12/16 18:03 86 18 138/79 97 Room Air 07/12/16 15:37 36.7 96 20 133/84 98 Room Air Physical Exam Constitutional: Vital signs reviewed. Eyes: Pupils are equal round reactive to light. Conjunctiva are noninjected. ENT: Pharynx is clear without erythema or exudate. Mucous membranes are moist. Neck supple without meningeal signs. Respiratory: Clear to auscultation bilaterally. Breath sounds are equal bilaterally. Cardiovascular: Regular rate and rhythm. No rubs or gallops. GI: Soft, nondistended. Epigastric and right upper quadrant tenderness, no guarding or Aguilera's sign. Bowel sounds are present. Musculoskeletal: No peripheral edema. No lower extremity tenderness. Integumentary: No cyanosis. Neurological: The patient is awake and alert. No focal deficits. Psychiatric: Normal affect. Medical Decision & Procedures ER Provider Diagnostic Interpretation: US results as stated below per my review and radiologist interpretation. ULTRASOUND RIGHT UPPER QUADRANT ABDOMEN CLINICAL HISTORY: Right upper quadrant abdominal pain. COMPARISON STUDY: Ultrasound of the abdomen dated 07/03/2016. TECHNIQUE: Real-time, grayscale, and color flow sonography of the right upper quadrant of the abdomen was performed. Images are reviewed in the transverse and longitudinal planes. FINDINGS: Liver: The liver is normal in size and echotexture. There is no intrahepatic biliary ductal dilatation. The main portal vein is patent. Gallbladder: Calcified gallstones are again noted. The gallbladder is mildly distended. The gallbladder wall is mildly thickened measuring up to 4 mm. No pericholecystic fluid is identified. A sonographic Aguilera's sign is reportedly absent. The common bile duct measures up to 0.5 cm in diameter. Pancreas: Visualized portions of the pancreatic head and body are normal in appearance. Right kidney: Survey images of the right kidney demonstrate normal size and echotexture. There is no hydronephrosis. Ascites: None. IMPRESSION: Cholelithiasis with a mildly distended and thick-walled gallbladder. A sonographic Aguilera's sign is reportedly absent and findings are equivocal for acute cholecystitis which is not excluded. The appearance has not significantly changed from study performed 9 days previously. If there is strong clinical concern for acute cholecystitis then a nuclear hepatobiliary scan should be considered. Electronically signed by: Roberto Roca M.D. 07/12/2016 6:57 PM Dictated Date/Time: 07/12/2016 6:54 PM Laboratory Results 07/12/16 17:48 Red Blood Count 4.50, Mean Corpuscular Volume 90.2, Mean Corpuscular Hemoglobin 31.3, Mean Corpuscular Hemoglobin Concent 34.7, Mean Platelet Volume 9.7, Neutrophils (%) (Auto) 83.5, Lymphocytes (%) (Auto) 11.8, Monocytes (%) (Auto) 4.2, Eosinophils (%) (Auto) 0.1, Basophils (%) (Auto) 0.2, Neutrophils # (Auto) 10.89, Lymphocytes # (Auto) 1.54, Monocytes # (Auto) 0.55, Eosinophils # (Auto) 0.01, Basophils # (Auto) 0.02 07/12/16 17:48 Test 07/12/16 17:25 07/12/16 17:48 Urine Color DK YELLOW Urine Appearance CLEAR (CLEAR) Urine pH 6.5 (4.5-7.5) Urine Specific [place] 1.024 (1.000-1.030) Urine Protein NEG (NEG) Urine Glucose (UA) NEG (NEG) Urine Ketones NEG (NEG) Urine Occult Blood NEG (NEG) Urine Nitrite NEG (NEG) Urine Bilirubin NEG (NEG) Urine Urobilinogen NEG (NEG) Urine Leukocyte Esterase NEG (NEG) Urine Test NEG (NEG) White Blood Count 13.04 K/uL (4.8-10.8) Red Blood Count 4.50 M/uL (4.2-5.4) Hemoglobin 14.1 g/dL (12.0-16.0) Hematocrit 40.6 % (37-47) Mean Corpuscular Volume 90.2 fL (80-100) Mean Corpuscular Hemoglobin 31.3 pg (25-34) Mean Corpuscular Hemoglobin Concent 34.7 g/dl (32-36) Platelet Count 277 K/uL (130-400) Mean Platelet Volume 9.7 fL (7.4-10.4) Neutrophils (%) (Auto) 83.5 % Lymphocytes (%) (Auto) 11.8 % Monocytes (%) (Auto) 4.2 % Eosinophils (%) (Auto) 0.1 % Basophils (%) (Auto) 0.2 % Neutrophils # (Auto) 10.89 K/uL (1.4-6.5) Lymphocytes # (Auto) 1.54 K/uL (1.2-3.4) Monocytes # (Auto) 0.55 K/uL (0.11-0.59) Eosinophils # (Auto) 0.01 K/uL (0-0.5) Basophils # (Auto) 0.02 K/uL (0-0.2) RDW Standard Deviation 44.0 fL (36.4-46.3) RDW Coefficient of Variation 13.3 % (11.5-14.5) Immature Granulocyte % (Auto) 0.2 % Immature Granulocyte # (Auto) 0.03 K/uL (0.00-0.02) Anion Gap 7.0 mmol/L (3-11) Est Creatinine Clear Calc Drug Dose 110.0 ml/min Estimated GFR () 100.0 Estimated GFR (Non- 86.3 BUN/Creatinine Ratio 12.8 (10-20) Calcium Level 9.0 mg/dl (8.5-10.1) Total Bilirubin 0.7 mg/dl (0.2-1) Direct Bilirubin 0.4 mg/dl (0-0.2) Aspartate Amino Transf (AST/SGOT) 137 U/L (15-37) Alanine Aminotransferase (ALT/SGPT) 116 U/L (12-78) Alkaline Phosphatase 119 U/L (45-117) Total Protein 7.9 gm/dl (6.4-8.2) Albumin 3.7 gm/dl (3.4-5.0) Lipase 230 U/L (73-393) Laboratory results as reviewed by me. Medications Administered Medications (Trade) Dose Ordered Sig/Dg Route Start Time Stop Time Status Last Admin Dose Admin Ondansetron HCl (Zofran Inj) 4 mg NOW STAT IV 07/12/16 17:23 07/12/16 17:26 DC 07/12/16 17:55 4 MG Morphine Sulfate (MoRPHine SULFATE INJ) 4 mg NOW STAT IV 07/12/16 17:28 07/12/16 17:29 DC 07/12/16 17:55 4 MG ED Course 1721: The patient was evaluated in room B2. A complete history and physical exam was performed. 1722: Ordered Zofran Inj 4 mg IV. 1727: Ordered Morphine Sulfate Inj 4 mg IV. 1909: I discussed the patient with Dr. Geraldo CORONEL surgery - he is going to evaluate the patient for further treatment. 1914: I reevaluated the patient and she is resting comfortably. The patient verbally expressed understanding and agreement of the treatment plan. The patient will be evaluated for further treatment. 1935: I discussed the patient with Dr. Geraldo hernandez - he will do the cholecystectomy tomorrow. Medical Decision This is a 36-year-old female presents with upper abdominal pain and vomiting. Differential diagnosis includes acute cholecystitis, biliary colic, pancreatitis , peptic ulcer disease, duodenitis, irritable bowel syndrome. I did perform a limited focused review of portions of the patient's old chart on the electronic medical record. The patient was here for chest pain and epigastric pain on July 03. She had a CTA of her chest which shoed no PE, and had a gallbladder US which showed gallstones. The gallbladder giles were within upper limits of normal. Resident Physician Supervision Note: I did evaluate and examine this patient myself. I did guide management for the patient. I agree with the resident's ( ) assessment as discussed. Please see the resident's dictation for further details. I did evaluate the patient as noted above. IV access was established. The patient was treated with IV morphine and Zofran. Urinalysis is unremarkable. I did order and review the patient's blood work as noted in the electronic medical record. Her white blood cell count is elevated and her LFTs are abnormal. Ultrasound of the right upper quadrant was ordered. I did review the images myself as well as the radiology report as described above. She does have signs of early cholecystitis on the ultrasound. The patient was informed of her test results. The case was discussed with Dr. Chow of surgery who did admit the patient for cholecystectomy. Consults Time Called: 1899 Consulting Physician: Dr. Geraldo CORONEL surgery Returned Call: 1909 I discussed the patient with Dr. Geraldo CORONEL surgery - he is going to evaluate the patient for further treatment. Additional Consults: Time Called: -- Consulted Physician: Dr. Geraldo CORONEL surgery Returned Call: 1935 Additional Comments: I discussed the patient with Dr. Geraldo CORONEL surgery - he will do the cholecystectomy tomorrow. Impression Primary Impression: Cholecystitis Scribe Attestation The scribe's documentation has been prepared under my direct and personally reviewed by me in its entirety. I confirm that the note above accurately reflects all work, treatment, procedures, and medical decision making performed by me. Departure Information Dispostion Being Evaluated By Hospitalist Referrals Aurea Gonzalez M.D. (PCP) Patient Instructions My [facility]
[2016-07-12] MEDS ORDERED: METHOCARBAMOL 750 MG TAB PO PRN (20:30)
[2016-07-12 20:50] VITALS: BP 135/89; PULSE 75; TEMP 36.9; O2SAT 100; Ht 172.7 cm; Wt 97.1 kg
--- NOTE | 2016-07-12 21:06 | Medical Consult ---
Consultation Date of Consultation: Jul 12, 2016. Attending Physician: Reason for Consultation: Medical eval prior to surgery History of Present Illness 36 y/o F Hx bipolar disease and migraines, Pt developed RUQ pain radiating to her back earlier in evening. The pt had similar symptoms previously. She had a negative cardiac workup and gall bladder disease was the suspected etiology. She had an ultrasound of the RUQ in the ER, the results of which were consistent with calculi and cholecystitis. She was evaluated by surgery and will proceed to the OR AM for cholecystectomy. She describes a fever earlier in the day and denies vomiting or diarrhea. Past Medical/Surgical History Medical Problems: (1) Acute cholecystitis due to biliary calculus Status: Acute (2) Anxiety State Nos Status: Chronic (3) Biliary colic Status: Acute (4) Borderline Personality Disorder Status: Chronic (5) Cholecystitis Status: Acute (6) Cholelithiasis Status: Acute (7) Depressive Disorder Nec Status: Chronic (8) Epigastric abdominal pain Status: Acute (9) Kidney stones Status: Chronic (10) Posttraumatic Stress Disorder Status: Chronic (11) Shortness of breath Status: Acute (12) Substernal precordial chest pain Status: Acute Family History Hypertension Kidney stones Social History Employed full-time - smokes 1/2 pack QD Smoking Status: Current Every Day Smoker Drug Use: none Marital Status: in relationship Housing Status: lives with family Occupation Status: employed Allergies Coded Allergies: Latex (Verified Allergy, Intermediate, SWELLING WITH INTERNAL EXAMS AND CONDOMS, 07/12/16) Current Inpatient Medications Current Inpatient Medications Medications (Trade) Dose Ordered Sig/Dg Route Start Time Stop Time Status Last Admin Dose Admin Lactated Ringer's 1,000 ml @ 75 mls/hr [id number] IV 07/12/16 19:45 08/11/16 19:44 UNV Lorazepam 0.5 mg/ Syringe 0.5 ml @ 0.5 mls/min Q6 PRN IV 07/12/16 19:45 08/11/16 19:44 UNV Lorazepam 0.5 mg/ Syringe 0.5 ml @ 0.5 mls/min Q6 PRN IV 07/12/16 19:45 08/11/16 19:44 UNV Cefoxitin Sodium/ Dextrose (Mefoxin IV/D5 50ml) 60 ml @ 100 mls/hr Q8 IV 07/12/16 22:00 07/22/16 21:59 UNV Hydromorphone HCl (Dilaudid Inj) 0.5 mg Q3H PRN IV 07/12/16 19:45 07/26/16 19:44 UNV Hydromorphone HCl (Dilaudid Inj) 1 mg Q3H PRN IV 07/12/16 19:45 07/26/16 19:44 UNV Acetaminophen/ Hydrocodone Bitart ([place] 5/325 Tab) 1 tab Q4 PRN PO 07/12/16 19:45 07/26/16 19:44 UNV Acetaminophen/ Hydrocodone Bitart 2 tab 2 tab Q4 PRN PO 07/12/16 19:45 07/26/16 19:44 UNV Promethazine HCl/ Sodium Chloride (Phenergan Inj/ Nss 50ml) 51 ml @ 204 mls/hr Q6H PRN IV 07/12/16 19:45 08/11/16 19:44 UNV Ondansetron HCl (Zofran Inj) 4 mg Q6H PRN IV 07/12/16 19:45 08/11/16 19:44 UNV Ketorolac Tromethamine (Toradol Inj) 30 mg Q6H IV. 07/12/16 19:45 07/17/16 19:44 UNV Review of Systems Constitutional: + chills, + fever, No sweats Eyes: No eye pain, No worsening of vision ENT: No hearing loss, No nasal symptoms, No unusual epistaxis Respiratory: No cough, No sputum, No wheezing Cardiovascular: No PND, No chest pain, No orthopnea Abdomen: + nausea, + pain, No constipation, No diarrhea, No vomiting Musculoskeletal: No joint pain, No muscle pain Genitourinary - Female: No dysuria, No hematuria, No urinary frequency, No urinary incontinence, No urinary retention, No urinary urgency Neurologic: No memory loss, No paralysis, No weakness Psychiatric: No depression symptoms Endocrine: No fatigue Hematologic / Lymphatic: No abnormal bleeding/bruising Integumentary: No rash Allergic / Immunologic: No environmental allergies Physical Exam Date Time Temp Pulse Resp B/P Pulse Ox O2 Delivery O2 Flow Rate FiO2 07/12/16 20:16 84 18 134/82 99 Room Air 07/12/16 18:03 86 18 138/79 97 Room Air 07/12/16 15:37 36.7 96 20 133/84 98 Room Air General Appearance: WD/WN, no apparent distress Head: normocephalic, atraumatic Eyes: normal inspection, PERRL, EOMI ENT: normal ENT inspection, hearing grossly normal Neck: supple, no JVD Respiratory/Chest: chest non-tender, lungs clear, normal breath sounds, no respiratory distress, no accessory muscle use Cardiovascular: regular rate, rhythm, no edema, no gallop, no JVD, no murmur, normal peripheral pulses Abdomen/GI: normal bowel sounds, + pertinent finding (mild diffuse epigastric tenderness) Back: normal inspection, no CVA tenderness, no muscle spasm, normal range of motion Extremities/Musculoskelatal: normal inspection, no calf tenderness, normal capillary refill, no pedal edema, normal range of motion Neurologic/Psych: board runner II-XII nml as tested, no motor/sensory deficits, alert, normal mood/affect, normal reflexes, oriented x 3 Skin: normal color, warm/dry, no rash Laboratory Results Last 24 Hours Test 07/12/16 17:25 07/12/16 17:48 Urine Color DK YELLOW Urine Appearance CLEAR Urine pH 6.5 Urine Specific [place] 1.024 Urine Protein NEG Urine Glucose (UA) NEG Urine Ketones NEG Urine Occult Blood NEG Urine Nitrite NEG Urine Bilirubin NEG Urine Urobilinogen NEG Urine Leukocyte Esterase NEG Urine Test NEG White Blood Count 13.04 K/uL Red Blood Count 4.50 M/uL Hemoglobin 14.1 g/dL Hematocrit 40.6 % Mean Corpuscular Volume 90.2 fL Mean Corpuscular Hemoglobin 31.3 pg Mean Corpuscular Hemoglobin Concent 34.7 g/dl Platelet Count 277 K/uL Mean Platelet Volume 9.7 fL Neutrophils (%) (Auto) 83.5 % Lymphocytes (%) (Auto) 11.8 % Monocytes (%) (Auto) 4.2 % Eosinophils (%) (Auto) 0.1 % Basophils (%) (Auto) 0.2 % Neutrophils # (Auto) 10.89 K/uL Lymphocytes # (Auto) 1.54 K/uL Monocytes # (Auto) 0.55 K/uL Eosinophils # (Auto) 0.01 K/uL Basophils # (Auto) 0.02 K/uL RDW Standard Deviation 44.0 fL RDW Coefficient of Variation 13.3 % Immature Granulocyte % (Auto) 0.2 % Immature Granulocyte # (Auto) 0.03 K/uL Sodium Level 145 mmol/L Potassium Level 3.7 mmol/L Chloride Level 113 mmol/L Carbon Dioxide Level 25 mmol/L Anion Gap 7.0 mmol/L Blood Urea Nitrogen 11 mg/dl Creatinine 0.87 mg/dl Est Creatinine Clear Calc Drug Dose 110.0 ml/min Estimated GFR () 100.0 Estimated GFR (Non- 86.3 BUN/Creatinine Ratio 12.8 Random Glucose 124 mg/dl Calcium Level 9.0 mg/dl Total Bilirubin 0.7 mg/dl Direct Bilirubin 0.4 mg/dl Aspartate Amino Transf (AST/SGOT) 137 U/L Alanine Aminotransferase (ALT/SGPT) 116 U/L Alkaline Phosphatase 119 U/L Total Protein 7.9 gm/dl Albumin 3.7 gm/dl Lipase 230 U/L Assessment & Plan 36 y/o F Hx bipolar disease and migraines, Pt developed RUQ pain radiating to her back earlier in evening. The pt had similar symptoms previously. She had a negative cardiac workup and gall bladder disease was the suspected etiology. She had an ultrasound of the RUQ in the ER, the results of which were consistent with calculi and cholecystitis. She was evaluated by surgery and will proceed to the OR AM for cholecystectomy. She describes a fever earlier in the day and denies vomiting or diarrhea. 1) Cholecystitis - slated for OR AM - provided with fluids, narcotics and antibiotics per surgery. Does not have any significamt risk factors for surgery. RCRI 0.4%. No further recommendations prior. 2) Bipolar - pt states condition is well stabilized - should not interrupt meds which have been reordered 3) Migraines - PRN meds ordered - no recent HAs Total time for this consult including discussion with surgery and pt - review of labs, meds, records - 30 min
[2016-07-12] MEDS: HYDROmorphone INJ 1 MG/ML SYR IV PRN (22:51)
[2016-07-12] MEDS: LACTATED RINGER'S 1000ML 1,000 ML IV SCH (22:59)
[2016-07-12] MEDS: TOPIRAMATE 100 MG TAB PO SCH (23:00)
[2016-07-12] MEDS ORDERED: PROMETHAZINE HCL INJ 12.5 MG in SODIUM CHLORIDE 0.9% 50ML 50 ML IV PRN (23:00)
[2016-07-12] MEDS: KETOROLAC TROMETHAMINE 30 MG/ML VIAL IV. SCH (23:36)
[2016-07-12 23:40] VITALS: BP 111/76; PULSE 75; TEMP 36.9; O2SAT 97
[2016-07-13] VITALS (9 sets, daily range): BP systolic 116–137; BP diastolic 74–91; PULSE 56–87; TEMP 36.3–37; O2SAT 95–100
[2016-07-13] MEDS: CEFOXITIN IV 1,000 MG in DEXTROSE 5% 50ML 50 ML IV SCH ×4 (00:18→21:01)
[2016-07-13] MEDS: KETOROLAC TROMETHAMINE 30 MG/ML VIAL IV. SCH (06:00)
[2016-07-13] MEDS ORDERED: LIDOCAINE HCL 2% 2 ML VIAL (20MG/ML) ONE (06:55)
[2016-07-13] MEDS ORDERED: ONDANSETRON INJ 2 MG/ML 2 ML VIAL ONE (06:55)
[2016-07-13] MEDS ORDERED: FENTANYL CITRATE INJ 50 MCG/1 ML 2 ML VIAL ONE ×3 (06:55→09:00)
[2016-07-13] MEDS ORDERED: ROCURONIUM BROMIDE 10 MG/ML 5 ML VIAL ONE (06:55)
[2016-07-13] MEDS ORDERED: PROPOFOL IV EMULSION 10 MG/ML 20 ML VIAL IV ONE (06:55)
[2016-07-13] MEDS ORDERED: DEXAMETHASONE SOD INJ 4 MG/ML VIAL ONE (06:55)
[2016-07-13] MEDS ORDERED: MIDAZOLAM HCL 1 MG/ML 2ML VIAL ONE (06:55)
[2016-07-13] MEDS ORDERED: CONRAY 60% 50 ML VIAL ONE (06:59)
[2016-07-13] MEDS ORDERED: BUPIVACAINE 0.5 % 5 MG/1 ML MPF 30ML VIAL ONE (06:59)
--- NOTE | 2016-07-13 07:13 | History & Physical Bridge Note ---
H&P Re-Evaluation Bridge Note: I have examined the patient, reviewed the History & Physical and in the interval since the performance of the History & Physical I have noted the following changes of clinical significance: No changes noted
[2016-07-13] MEDS ORDERED: LABETALOL HCL IV 5 MG/ML 20ML IV PRN (07:15)
[2016-07-13] MEDS ORDERED: HYDROmorphone INJ 0.5 MG/0.5 ML SYR IV PRN (07:15)
[2016-07-13] MEDS ORDERED: ATROPINE SULFATE 0.1 MG/ML 5ML SYR IV PRN (07:15)
[2016-07-13] MEDS ORDERED: PHENYLEPHRINE 100MCG/ML 5ML SYR IV PRN (07:15)
[2016-07-13] MEDS ORDERED: EpHEDrine SULFATE INJ 50 MG/ML AMP IV PRN (07:15)
[2016-07-13] MEDS ORDERED: ONDANSETRON INJ 2 MG/ML 2 ML VIAL IV PRN (07:15)
[2016-07-13] MEDS ORDERED: NALOXONE HCL 0.4 MG/1 ML VIAL/CARP IV PRN (07:15)
[2016-07-13] MEDS ORDERED: FENTANYL CITRATE INJ 50 MCG/1 ML 2 ML VIAL IV PRN (07:15)
[2016-07-13] MEDS ORDERED: MEPERIDINE HCL 25 MG/ML CARP IV PRN (07:15)
[2016-07-13] MEDS ORDERED: FLUMAZENIL 0.1 MG/1 ML 10 ML VIAL IV PRN (07:15)
[2016-07-13] MEDS ORDERED: LABETALOL HCL IV 5 MG/ML 20ML IV ONE (08:07)
[2016-07-13] MEDS ORDERED: GLYCOPYRROLATE INJ 0.2 MG/ML VIAL ONE (08:23)
[2016-07-13] MEDS ORDERED: NEOSTIGMINE METHYLSULFATE 5 MG/5 ML SYR ONE (08:23)
--- NOTE | 2016-07-13 08:37 | [facility] Post Operative Brief Note ---
Immediate Operative Summary Operative Date Jul 13, 2016. Pre-Operative Diagnosis Acute cholecystitis Post-Operative Diagnosis Same as preoperative diagnosis Procedure(s) Performed Laparoscopic Cholecystectomy Surgeon Dr. Arash Chow Well Shooter Surgeon(s) nurses Estimated Blood Loss 30 mL Findings acute inflammation and edema Specimens Permanent specimens A: Gallbladder and contents Anesthesia gen Complication(s) None Disposition Recovery Room / PACU
--- NOTE | 2016-07-13 09:27 | Anesthesiology Progress Note ---
Anesthesia Post Op Note Date & Time Jul 13, 2016 at 09:27 Vital Signs Pain Intensity: 3 Vital Signs Past 12 Hours Date Time Temp Pulse Resp B/P Pulse Ox O2 Delivery O2 Flow Rate FiO2 07/13/16 09:15 58 14 119/76 98 Nasal Cannula 2 07/13/16 09:05 50 12 123/77 99 Mask 10 07/13/16 08:55 70 19 140/85 100 Mask 10 07/13/16 08:47 36.3 65 14 138/86 100 Mask 10 07/13/16 06:48 36.3 77 16 116/76 99 Room Air 07/12/16 23:40 36.9 75 16 111/76 97 Room Air 07/12/16 23:30 Room Air Notes Mental Status: alert / awake / arousable, participated in evaluation Pt Amnestic to Procedure: Yes Nausea / Vomiting: adequately controlled Pain: adequately controlled Airway Patency, RR, SpO2: stable & adequate BP & HR: stable & adequate Hydration State: stable & adequate Anesthetic Complications: no major complications apparent
--- NOTE | 2016-07-13 09:28 | OPERATIVE REPORT ---
DATE OF OPERATION: 07/13/2016 PREOPERATIVE DIAGNOSIS: Acute cholecystitis. POSTOPERATIVE DIAGNOSIS: Same. NAME OF OPERATION: Laparoscopic cholecystectomy. STAFF SURGEON: Dr. Chow. ANESTHESIA: General. OPERATION AND FINDINGS: PROCEDURE: The patient was brought in the operating room and placed on the operating table in supine position. Her abdomen was prepped and draped in usual fashion. Pneumatic stockings and orogastric tube were placed. Marcaine 0.5% was used to anesthetize all incisions. Incision was made above the umbilicus, carrying dissection down. She had significant adipose tissue. The fascia was reflected with a tracheal hook and then a Veress needle passed, pneumoperitoneum was produced. Initially a 5 mm port was placed and then an 11 mm port placed at the umbilicus and then under visualization, three 5 mm ports were placed. The patient's gallbladder was thickened and inflamed and edematous, all consistent with acute cholecystitis. It was retracted. Dissection carried out at the [facility], identifying the cystic duct which was clipped and transected and the cystic artery identified, clipped and transected. The gallbladder was then dissected away from the liver bed in the usual fashion. There was acute edema in the posterior wall. Gallbladder was then placed in an Endobag. After appropriate hemostasis and irrigation, the Endobag was removed through the umbilical site using a 5 mm camera through one of the 5 mm ports. I did have to increase the size of the skin incision and fascial incision because of the large stones in the gallbladder. At this point, the fascia at the umbilicus closed using both interrupted and running 0 PDS suture, subcutaneous tissue reapproximated using 2-0 plain catgut suture then the skin reapproximated using 4-0 nylon suture. The patient was transferred to recovery room in stable condition. I attest to the content of the Intraoperative Record and any orders documented therein. Any exceptio ns are noted below.
[2016-07-13] MEDS: HYDROmorphone INJ 0.5 MG/0.5 ML SYR IV PRN ×3 (09:54→18:47)
[2016-07-13] MEDS: HYDROCODONE/ACETAMOPHEN 5/325MG TAB PO PRN ×2 (12:04→23:25)
[2016-07-13] MEDS: TOPIRAMATE 100 MG TAB PO SCH (12:05)
[2016-07-13] MEDS: ARIPIprazole TAB 10 MG TAB PO SCH (12:05)
[2016-07-13] MEDS: PANTOprazole SOD 40 MG TAB PO SCH (12:07)
[2016-07-13] MEDS: LACTATED RINGER'S 1000ML 1,000 ML IV SCH ×2 (12:07→17:41)
[2016-07-13 14:31] LABS: HEMATOCRIT 37.4 % (37-47)
--- NOTE | 2016-07-13 18:58 | Hospitalist Progress Note ---
Hospitalist Progress Note Date of Service Jul 13, 2016. Subjective Pt evaluation today including: conversation w/ patient, chart review, lab review some post operative pain after our conversation Medications Medications (Trade) Dose Ordered Sig/Dg Route Start Time Stop Time Status Last Admin Dose Admin Lactated Ringer's 1,000 ml @ 75 mls/hr [id number] IV 07/12/16 22:45 08/11/16 22:44 07/13/16 17:41 75 MLS/HR Cefoxitin Sodium/ Dextrose (Mefoxin IV/D5 50ml) 60 ml @ 100 mls/hr Q8@0600,1400,2200 IV 07/12/16 23:00 07/22/16 22:59 07/13/16 14:03 100 MLS/HR Hydromorphone HCl (Dilaudid Inj) 0.5 mg Q3H PRN IV 07/12/16 19:45 07/26/16 19:44 07/13/16 18:47 0.5 MG Hydromorphone HCl (Dilaudid Inj) 1 mg Q3H PRN IV 07/12/16 19:45 07/26/16 19:44 07/12/16 22:51 1 MG Acetaminophen/ Hydrocodone Bitart ([place] 5/325 Tab) 2 tab Q4 PRN PO 07/12/16 19:45 07/26/16 19:44 07/13/16 12:04 2 TAB Aripiprazole (Abilify Tab) 10 mg DAILY PO 07/13/16 09:00 08/12/16 08:59 07/13/16 12:05 10 MG Pantoprazole Sodium (Protonix Tab) 40 mg DAILY PO 07/13/16 09:00 08/12/16 08:59 07/13/16 12:07 40 MG Topiramate 100 mg 100 mg HS PO 07/12/16 23:00 08/11/16 22:59 07/13/16 12:05 100 MG Promethazine HCl/ Sodium Chloride (Phenergan Inj/ Nss 50ml) 50.5 ml @ 204 mls/hr Q6H PRN IV 07/12/16 23:00 08/11/16 22:59 07/13/16 10:10 204 MLS/HR Bupivacaine HCl (Marcaine 0.5% MPF Inj) 30 ml STK-MED ONCE .ROUTE 07/13/16 06:59 07/13/16 07:00 DC 07/13/16 08:25 7 ML Fentanyl Citrate (Fentanyl Inj) 100 mcg STK-MED ONCE .ROUTE 07/13/16 09:00 07/13/16 09:01 DC 07/13/16 09:10 25 MCG Objective Vital Signs Date Time Temp Pulse Resp B/P Pulse Ox O2 Delivery O2 Flow Rate FiO2 07/13/16 15:20 Room Air 07/13/16 15:17 36.5 67 18 135/85 95 Room Air 07/13/16 12:48 36.5 75 16 137/86 100 2.0 07/13/16 11:40 87 16 133/91 100 2.0 07/13/16 10:44 66 16 123/79 100 2.0 07/13/16 10:13 56 14 136/89 99 Nasal Cannula 2.0 07/13/16 09:45 Nasal Cannula 2.0 07/13/16 09:45 Nasal Cannula 2.0 07/13/16 09:40 36.7 78 14 126/79 98 Nasal Cannula 2.0 07/13/16 09:25 36.2 71 13 121/71 98 Nasal Cannula 2 07/13/16 09:15 58 14 119/76 98 Nasal Cannula 2 07/13/16 09:05 50 12 123/77 99 Mask 10 07/13/16 08:55 70 19 140/85 100 Mask 10 07/13/16 08:47 36.3 65 14 138/86 100 Mask 10 07/13/16 06:48 36.3 77 16 116/76 99 Room Air 07/12/16 23:40 36.9 75 16 111/76 97 Room Air 07/12/16 23:30 Room Air 07/12/16 20:50 100 Room Air 07/12/16 20:50 36.9 75 16 135/89 100 Room Air 07/12/16 20:50 36.9 75 16 135/89 100 Room Air 07/12/16 20:16 84 18 134/82 99 Room Air Physical Exam General Appearance: no apparent distress Eyes: normal inspection Neck: trachea midline Respiratory/Chest: lungs clear Cardiovascular: regular rate, rhythm Extremities: normal range of motion Laboratory Results Last 24 Hours Test 07/13/16 14:16 Hemoglobin 12.8 g/dL Hematocrit 37.4 % Assessment and Plan (1) Tobacco abuse counseling Assessment & Plan: counseled about quitting her half a pack a day (2) Cholecystitis Assessment & Plan: s/p choly laproscopically
[2016-07-13] MEDS: HYDROmorphone INJ 1 MG/ML SYR IV PRN (21:35)
[2016-07-14] MEDS: LACTATED RINGER'S 1000ML 1,000 ML IV SCH (01:46)
[2016-07-14 03:50] VITALS: BP 116/71; PULSE 67; TEMP 37; O2SAT 98
[2016-07-14] MEDS ORDERED: HYDR-5688 PO (05:31)
[2016-07-14] MEDS ORDERED: CIPR-255 PO (05:31)
[2016-07-14] MEDS: CEFOXITIN IV 1,000 MG in DEXTROSE 5% 50ML 50 ML IV SCH (05:38)
--- NOTE | 2016-07-14 06:02 | Discharge Instructions ---
Discharge Instructions Date of Service Jul 14, 2016. Admission Reason for Admission: Acute Cholecystitis Due To Biliary Calculus Discharge Discharge Diagnosis / Problem: acute cholecystitis Discharge Goals Goal(s): Decrease discomfort, Improve function, Improve disease control Activity Recommendations Activity Limitations: as noted below Lifting Limitations: no more than 25 pounds Exercise/Sports Limitations: until after follow-up appointment May Resume Sexual Activity: when tolerated (may shower) Shower/Bathe: no limitations (no bath until sutures removed) SPECIAL CARE INSTRUCTIONS: * Cover incisions and change daily for comfort/drainage. * may shower * May use ibuprofen for pain as tolerated. * Expect some swelling and bruising. Call your doctor if: * Temperature above 101 degrees * Pain not relieved by pain medicine ordered * There is increased drainage or redness from any incision * You have any unanswered questions or concerns [phone]. FOLLOW UP VISIT: If not already scheduled, please call the office for a follow-up visit. for next or ,- some suture removal OFFICE PHONE NUMBER: Dr. Chow Office . Current Hospital Diet Patient's current hospital diet: Regular Diet Discharge Diet Recommended Diet: Regular Diet Procedures Procedures Performed: Laparoscopic Cholecystectomy Pending Studies Studies pending at discharge: no Medical Emergencies . Who to Call and When: Medical Emergencies: If at any time you feel your situation is an emergency, please call 911 immediately. . Non-Emergent Contact Non-Emergency issues call your: Primary Care Provider, Surgeon . "Provider Documentation" section prepared by Arash Chow. VTE Core Measure Inpt VTE Proph given/why not?: SCD's
[2016-07-14 06:40] LABS: ALB/GLOB RATIO 0.9 (0.9-2); BUN/CREATININE RATIO 10.7 (10-20); CREATININE 0.76 mg/dl (0.60-1.20); POTASSIUM 3.8 mmol/L (3.5-5.1)
[2016-07-14 07:06] LABS: HEMATOCRIT 36.9 % (37-47); MEAN CELL VOLUME 91.8 fL (80-100); MEAN CORPUSCULAR HEMOGLOBIN 31.1 pg (25-34); MEAN CORPUSCULAR HGB CONC 33.9 g/dl (32-36); MEAN PLATELET VOLUME 9.6 fL (7.4-10.4); PLATELET COUNT 251 K/uL (130-400); RED BLOOD COUNT 4.02 M/uL (4.2-5.4); WHITE BLOOD COUNT 11.33 K/uL (4.8-10.8)
[2016-07-14] MEDS ORDERED: NURSING VERBAL MED ORDER ONE (07:30)
[2016-07-14 07:35] VITALS: BP 123/78; PULSE 78; TEMP 37; O2SAT 99
[2016-07-14] MEDS: HYDROCODONE/ACETAMOPHEN 5/325MG TAB PO PRN (08:33)
[2016-07-14] MEDS: PANTOprazole SOD 40 MG TAB PO SCH (08:34)
[2016-07-14] MEDS: ARIPIprazole TAB 10 MG TAB PO SCH (08:34)
[2016-07-14] MEDS ORDERED: TOPIRAMATE 100 MG TAB PO SCH (09:00)
[2016-07-14 09:49] LABS: CALCIUM 8.7 mg/dl (8.5-10.1)
[2016-07-14 10:06] VITALS: BP 123/78; PULSE 78; TEMP 37; O2SAT 99
--- NOTE | 2016-07-14 10:28 | DISCHARGE SUMMARY ---
PRINCIPAL DIAGNOSIS: Acute cholecystitis. PROCEDURES: The patient underwent laparoscopic cholecystectomy. HISTORY OF PRESENT ILLNESS: The patient is a 36-year-old female who has been having abdominal pain and nausea and was presenting to the Emergency Room with more severe pain, found with worsening acute cholecystitis. HOSPITAL COURSE: The patient was brought into the hospital on 07/02/2016. She was taken to the operating room on 07/13/2016 where she underwent laparoscopic cholecystectomy, which she tolerated very well. She has done quite well and is ready for discharge home today to be followed in the surgical clinic this week.
== END 2016-07-14 11:32 | disposition home or self-care (01) | DRG 416 ==
LOC: ENRESERVTM → ENRESERVDT → C.EDB 15:25 → C.3E 19:48 → UNDOADMIN 19:48 → C.MSN 07-13 13:37
PROVIDERS: ADMIT Surgery; ATTEND Surgery
PROC: 0FT40ZZ Resection of Gallbladder, Open Approach (ICD-10-PCS; principal; 2016-07-13 08:30)
DX: K80.00 Calculus of gallbladder with acute cholecystitis without obstruction (principal); F17.200 Nicotine dependence, unspecified, uncomplicated; F60.3 Borderline personality disorder; F43.10 Post-traumatic stress disorder, unspecified; F41.9 Anxiety disorder, unspecified; F32.9 Major depressive disorder, single episode, unspecified; Z98.51 Tubal ligation status

== ENCOUNTER → 2017-02-07 | Outpatient (CLI) | payer OTHER ==
[~2017-02-07] MED LIST changes: +CIPR-255 PO; -HYDR-5688 PO; -PANT40TA PO
== END | disposition home or self-care (01) ==
LOC: C.PAPS 12:14
PROVIDERS: ATTEND Physician Assistant
DX: Z30.9 Encounter for contraceptive management, unspecified (principal)

== ENCOUNTER → 2017-02-28 | Outpatient (CLI) | payer OTHER ==
--- NOTE | 2017-02-28 10:00 | DIAGNOSTIC IMAGING REPORT ---
CHEST 2 VIEWS ROUTINE CLINICAL HISTORY: ACUTE BRONCHITIS dyspnea COMPARISON STUDY: 07/03/2016 FINDINGS: Slight interstitial prominence throughout both hemithoraces. No evidence for focal infiltrate. No significant cardiac enlargement. IMPRESSION: Mild bronchitis. No focal infiltrate. The above report was generated using voice recognition software. It may contain grammatical, syntax or spelling errors. Electronically signed by: Palomo Rojas M.D. 02/28/2017 9:59 AM Dictated Date/Time: 02/28/2017 9:58 AM
== END | disposition home or self-care (01) ==
LOC: C.RADPV 09:39
PROVIDERS: ATTEND Family Medicine
DX: J20.9 Acute bronchitis, unspecified (principal)

== ENCOUNTER → 2017-03-04 | Outpatient (CLI) | payer OTHER | END | disposition home or self-care (01) | LOC: C.PATHSPEC 17:18 | PROVIDERS: ATTEND Obstetrics & Gynecology | DX: R87.612 Low grade squamous intraepithelial lesion on cytologic smear of cervix (LGSIL) (principal) ==

== ENCOUNTER → 2017-05-05 | Outpatient (CLI) | payer OTHER ==
--- NOTE | 2017-05-05 15:55 | DIAGNOSTIC IMAGING REPORT ---
CHEST 2 VIEWS ROUTINE CLINICAL HISTORY: ACUTE BRONCHITIS NASAL SEPTAL PERFORATION COMPARISON STUDY: 02/28/2017 FINDINGS: The cardiac and mediastinal contours are normal. There is no evidence of focal pulmonary consolidation. There is no evidence of failure. No pleural effusions are visualized.[ IMPRESSION: No active disease in the chest. Electronically signed by: Claudio Talbot M.D. 05/05/2017 3:54 PM Dictated Date/Time: 05/05/2017 3:54 PM
== END | disposition home or self-care (01) ==
LOC: C.RADPV 15:27
PROVIDERS: ATTEND Family Medicine
DX: J20.9 Acute bronchitis, unspecified (principal); J34.89 Other specified disorders of nose and nasal sinuses

== ENCOUNTER → 2017-06-19 | Outpatient (CLI) | payer OTHER ==
--- NOTE | 2017-06-19 15:49 | DIAGNOSTIC IMAGING REPORT ---
L RIBS UNILATERAL WITH PA CHEST HISTORY: 37 years-old Female CHEST WALL PAIN acute atypical chest pain COMPARISON: Chest radiographs 05/05/2017 TECHNIQUE: PA view of the chest with 4 views of the left ribs FINDINGS: Cardiomediastinal and hilar silhouettes are within normal limits. There is no pneumothorax, pleural effusion, focal airspace consolidation or overt pulmonary edema. Subacute or remote fracture of the posterior lateral left seventh rib appears unchanged no acute displaced rib fracture identified. Cholecystectomy clips noted.. IMPRESSION: 1. No acute process of the chest. 2. No acute displaced rib fracture identified. 2. Subacute or chronic appearing fracture of the posterior lateral left seventh rib appears unchanged. The above report was generated using voice recognition software. It may contain grammatical, syntax or spelling errors. Electronically signed by: Anton Recinos M.D. 06/19/2017 3:47 PM Dictated Date/Time: 06/19/2017 3:44 PM
== END | disposition home or self-care (01) ==
LOC: C.RADPV 15:15
PROVIDERS: ATTEND Family Medicine
DX: R07.89 Other chest pain (principal); M79.661 Pain in right lower leg

== ENCOUNTER → 2017-06-19 | Outpatient (CLI) | payer OTHER ==
--- NOTE | 2017-06-19 16:53 | DIAGNOSTIC IMAGING REPORT ---
R VENOUS DOPP LOWER EXT UNILAT HISTORY: 37 years-old Female M79.661 Tenderness of right [id number] acute right calf pain COMPARISON: None available TECHNIQUE: Multiple real-time sonographic images of the right lower extremity deep venous structures were obtained assessing grayscale appearance, color and spectral flow FINDINGS: There is normal compressibility, flow, phasicity and augmentation of the right lower extremity deep venous structures. IMPRESSION: No sonographic evidence of deep venous thrombosis. The above report was generated using voice recognition software. It may contain grammatical, syntax or spelling errors. Electronically signed by: Anton Recinos M.D. 06/19/2017 4:52 PM Dictated Date/Time: 06/19/2017 4:51 PM
== END | disposition home or self-care (01) ==
LOC: C.ULTR 16:19
PROVIDERS: ATTEND Family Medicine
DX: M79.661 Pain in right lower leg (principal)

== ENCOUNTER → 2017-07-04 | Outpatient (CLI) | payer OTHER ==
[2017-07-04 13:06] LABS: BASO % 0.3 %; BASO ABS # 0.02 K/uL (0-0.2); EOS % 1.1 %; EOS ABS # 0.09 K/uL (0-0.5); HEMATOCRIT 41.9 % (37-47); HEMOGLOBIN 14.7 g/dL (12.0-16.0); IG# 0.02 K/uL (0.00-0.02); LYMPH % 32.6 %; MEAN CELL VOLUME 92.5 fL (80-100); MEAN CORPUSCULAR HEMOGLOBIN 32.5 pg (25-34); MEAN CORPUSCULAR HGB CONC 35.1 g/dl (32-36); MEAN PLATELET VOLUME 9.9 fL (7.4-10.4); MONO % 7.5 %; NEUT % 58.2 %; NEUT ABS # 4.64 K/uL (1.4-6.5); PLATELET COUNT 218 K/uL (130-400); RED CELL DISTRIBUTION WIDTH CV 13.9 % (11.5-14.5); RED CELL DISTRIBUTION WIDTH SD 46.9 fL (36.4-46.3); WHITE BLOOD COUNT 7.97 K/uL (4.8-10.8)
[2017-07-04 16:36] LABS: ALBUMIN 3.6 gm/dl (3.4-5.0); ALT/SGPT 27 U/L (12-78); BLOOD UREA NITROGEN 8 mg/dl (7-18); CALCIUM 9.1 mg/dl (8.5-10.1); CARBON DIOXIDE 22 mmol/L (21-32); CREATININE 0.78 mg/dl (0.60-1.20); GLUCOSE 90 mg/dl (70-99); POTASSIUM 3.9 mmol/L (3.5-5.1); SODIUM 139 mmol/L (136-145)
[2017-07-04 16:46] LABS: ALKALINE PHOSPHATASE 77 U/L (45-117); AST/SGOT 16 U/L (15-37); TOTAL PROTEIN 7.1 gm/dl (6.4-8.2)
== END | disposition home or self-care (01) ==
LOC: C.LABPVFM 10:40
PROVIDERS: ATTEND Family Medicine
DX: M19.90 Unspecified osteoarthritis, unspecified site (principal); F41.8 Other specified anxiety disorders; R41.3 Other amnesia